=== PATIENT | female | born 1985 | race Caucasian/White ===

== ENCOUNTER 2021-06-27 05:50 | Emergency (ER) | payer OTHER, SELFPAY ==
--- NOTE | ~2021-06-27 | US_ITS ---
EXAMINATION: US ABDOMEN COMPLETE CLINICAL INFORMATION: Upper abdominal pain. Rule out gallbladder problem.. COMPARISON: None TECHNIQUE: Real-time imaging of the abdominal viscera. FINDINGS: PANCREAS: Normal. ABDOMINAL AORTA: The proximal, mid, and distal segments are normal in caliber. INFERIOR VENA CAVA: Visualized portions are normal. LIVER: Normal. The liver is normal in size. The liver contour is normal. Parenchymal echogenicity is increased. No focal hepatic lesion. There is no intrahepatic biliary duct dilatation seen. GALLBLADDER: Normal. The gallbladder is physiologically distended without evidence of stones, sludge, polyps, wall thickening or pericholecystic fluid. COMMON BILE DUCT: Normal in caliber measuring 0.3-0.6 cm in diameter. RIGHT KIDNEY: Normal. No hydronephrosis. No renal calculi or focal parenchymal lesions. The kidney measures 10.6 cm in maximum dimension. LEFT KIDNEY: Normal. No hydronephrosis. No renal calculi or focal parenchymal lesions. The kidney measures 10.3 cm in maximum dimension. SPLEEN: Normal. The spleen measures 9.1 cm in maximum dimension. FREE FLUID: None. US/US abdomen complete IMPRESSION: Hepatic steatosis without focal lesion. Rest of the abdominal ultrasound is unremarkable.
[2021-06-27 06:02] VITALS: BP 130/85; PULSE 82; RESP 16; TEMP 36.8; O2SAT 98; BMI 22.4
[2021-06-27] MEDS: 0.9 % Sodium Chloride 1,000 ML 999 ML IVCONT (06:14)
[2021-06-27 06:20] LABS: MANUAL DIFF FLAG NO
[2021-06-27 06:22] LABS: Basophils Percent Auto 0.5 % (0-2); Eosinophils Absolute Auto 0.2 X10*3/uL (0.0-0.4); Eosinophils Percent Auto 3.7 % (0-4); Hematocrit 40.9 % (37-47); Imm Gran Abs Auto 0.04 X10*3/uL (0.00-0.03); Imm Gran Pct Auto 0.6 % (0.0-0.4); Lymphocytes Absolute Auto 1.4 X10*3/uL (1.2-4.9); Lymphocytes Percent Auto 20.8 % (20-40); Mean Corpuscular HGB Conc 31.8 g/dl (31.0-35.0); Mean Corpuscular Hemoglobin 25.7 pg (27.0-33.0); Mean Platelet Volume 10.4 fL (9.4-12.3); Monocytes Absolute Auto 0.6 X10*3/uL (0.1-1.2); Monocytes Percent Auto 8.9 % (2-11); Neutrophils Absolute Auto 4.3 X10*3/uL (2.0-8.3); Neutrophils Percent Auto 65.5 % (45-73); Platelet Count 238 X10*3/uL (160-400); Red Blood Count 5.05 X10*6/uL (4.20-5.50); Red Cell Distribution Width 13.9 % (11.0-16.0); White Blood Count 6.5 X10*3/uL (4.8-10.8)
[2021-06-27 06:38] LABS: Alanine Aminotransferase 352 U/L (0-31); Albumin Level 3.9 g/dL (3.5-5.0); Alkaline Phosphatase 603 U/L (39-117); Anion Gap 12 (12-20); Aspartate Amino Transferase 136 U/L (5-31); Bilirubin Direct 0.6 mg/dL (0.0-0.5); Bilirubin Total 1.4 mg/dL (0.0-1.0); Blood Urea Nitrogen 7 mg/dL (9-16); Calcium 9.1 mg/dL (8.4-10.2); Carbon Dioxide 24 mmol/L (22-29); Chloride 107 mmol/L (96-108); Creatinine Clr Calc Pharmacy 84.7; Estimated Glomerular Filt Rate > 60; Glucose Random 125 mg/dL (60-115); Lipase 239 U/L (8-78); Potassium 3.4 mmol/L (3.3-5.1); Sodium 140 mmol/L (135-145); Total Protein 7.4 g/dL (6.5-8.0)
--- NOTE | 2021-06-27 07:04 | ED.ABDPAIN ---
HPI - Abdominal Pain General Chief Complaint: Abdominal Pain Stated Complaint: abd pain Time Seen by Provider: 06/27/21 06:01 Source: patient and family Mode of arrival: ambulatory Limitations: no limitations History of Present Illness HPI narrative: 36-year-old female came in for evaluation of upper abdominal pain for 1 week. Patient's symptoms started a week ago has an constant but fluctuating upper abdominal dull aching pain, pain described as moderate 5/10, with no radiation, slightly worsening with food but nothing relieves the pain, no other associated symptoms of fever or chills or anorexia or nausea or vomiting. Never had previous similar symptoms in the past. Related Data Allergies Allergy/AdvReac Type Severity Reaction Status Date / Time No Known Allergies Allergy Verified 06/27/21 06:01 Review of Systems Review of Systems All other systems are reviewed and are negative Constitutional: Reports as per HPI and Reports no additional constitutional complaints Eyes: Reports as per HPI and Reports no additional eye complaints Reports system reviewed and no additional complaints, except as documented Cardiovascular: Reports as per HPI and Reports no additional cardiovascular complaints Respiratory: Reports as per HPI and Reports no additional respiratory complaints Gastrointestinal: Reports as per HPI and Reports no additional gastrointestinal complaints Genitourinary: Reports no additional female genitourinary complaints Musculoskeletal: Reports no additional musculoskeletal complaints Skin/Breast: Reports system reviewed and no additional complaints, except as docu Psychiatric: Reports no additional psychiatric complaints Endocrine: Reports no additional endocrine complaints Hematologic/Lymphatic: Reports no additional hematologic/lymphatic complaints Allergic/Immunologic: Reports no additional allergic/immunologic complaints Reports system reviewed and no additional complaints, except as documented and Reports Abnormal speech present Physical Exam Vital Signs: Vital Signs: Last Vital Signs Temp 98.4 F 06/27/21 07:24 Pulse 86 06/27/21 09:36 Resp 18 06/27/21 09:36 BP 114/69 06/27/21 09:36 Pulse Ox 98 06/27/21 09:36 Body Mass Index 22.4 Vital signs have been reviewed as appeared to be correct. Blood pressure normal. Heart rate normal. Respiration rate normal. Temperature normal. Oxygen saturation normal. Appearance: Alert. Oriented X3. No acute distress. Head: Normal external exam. Normocephalic. Atraumatic. No Evans signs noted. No raccoon eyes noted Eyes: PERRLA. EOMI. Conjunctiva and sclera normal. Eyelids normal. ENT: TM's Normal. Pharynx normal. Uvula midline. Moist mucous membranes. No trismus noted. No drooling noted. No muffled voice noted. Neck: Normal inspection. Neck supple. FROM. No adenopathy. Thyroid Normal. No meningeal signs. No neck mass noted. CVS: Normal heart rate and rhythm. Heart sound normal. No murmurs noted. Pulses normal throughout. Respiratory: No respiratory distress. Painless inspiration. Breath sounds normal. No wheezes/rales/rhonchi noted. Chest nontender. No accessory muscle usage noted or decreased air movement noted. Abdomen: Soft, mild upper abdominal tenderness, no guarding, no rebound tenderness. Bowel sounds normal in all 4 quadrants. No distention noted. No organomegaly noted. No visible injury noted. Back: No CVA tenderness. Full range of motion noted. Skin: Skin warm and dry. Normal skin color. Normal skin turgor. No rashes/lesions/lacerations noted. Extremities: No lower extremity edema. Extremities exhibit normal range of motion. Extremities nontender. Neuro: Oriented X 3. Cranial nerve exam: II-XII are grossly intact No motor deficit. No sensory deficit. Reflexes normal. Course Course Course Narrative: Assessment and plan. 36-year-old female otherwise healthy came in with upper abdominal pain for the past week found to have an acute hepatitis and acute pancreatitis, ultrasound is unremarkable except for hepatic steatosis without focal lesion. As discussed with the patient has no fever no jaundice down appears stable to avoid eating greasy food, Tylenol, alcohol, and take clear diet low or no fat. And follow-up with principal technical writer. Patient is breast-feeding a home do not Wanna be hospitalized will contact Dr. Mathur from GI as an outpatient. MDM - Abdominal Pain Lab Data Attestation: I reviewed the patient's lab results. Result diagrams: 06/27/21 06:12 06/27/21 06:12 Labs: Lab Results 06/27/21 06/27/21 06/27/21 Range/Units 06:12 06:12 07:52 WBC 6.5 (4.8-10.8) X10*3/uL RBC 5.05 (4.20-5.50) X10*6/uL Hgb 13.0 (12.0-16.0) g/dl Hct 40.9 (37-47) % MCV 81.0 (80-98) fL MCH 25.7 L (27.0-33.0) pg MCHC 31.8 (31.0-35.0) g/dl RDW 13.9 (11.0-16.0) % Plt Count 238 (160-400) X10*3/uL MPV 10.4 (9.4-12.3) fL Immature Gran % (Auto) 0.6 H (0.0-0.4) % Neut % (Auto) 65.5 (45-73) % Lymph % (Auto) 20.8 (20-40) % Barnes % (Auto) 8.9 (2-11) % Eos % (Auto) 3.7 (0-4) % Baso % (Auto) 0.5 (0-2) % Lymph # (Auto) 1.4 (1.2-4.9) X10*3/uL Barnes # (Auto) 0.6 (0.1-1.2) X10*3/uL Eos # (Auto) 0.2 (0.0-0.4) X10*3/uL Baso # (Auto) 0.0 (0.0-0.2) X10*3/uL Abs Immat Gran (auto) 0.04 H (0.00-0.03) X10*3/uL Absolute Neuts (auto) 4.3 (2.0-8.3) X10*3/uL Absolute Nucleated RBC 0.000 (0.0-0.012) X10*3/uL Nucleated RBC % (auto) 0.0 (0.0-0.2) /100WBC Sodium 140 (135-145) mmol/L Potassium 3.4 (3.3-5.1) mmol/L Chloride 107 (96-108) mmol/L Carbon Dioxide 24 (22-29) mmol/L Anion Gap 12 (12-20) BUN 7 L (9-16) mg/dL Creatinine 0.81 (0.5-1.4) mg/dL Estim Creat Clear Calc 84.7 Estimated GFR > 60 Random Glucose 125 H (60-115) mg/dL Calcium 9.1 (8.4-10.2) mg/dL Magnesium 2.0 (1.6-2.6) mg/dL Total Bilirubin 1.4 H (0.0-1.0) mg/dL Direct Bilirubin 0.6 H (0.0-0.5) mg/dL AST 136 H (5-31) U/L ALT 352 H (0-31) U/L Alkaline Phosphatase 603 H (39-117) U/L Total Protein 7.4 (6.5-8.0) g/dL Albumin 3.9 (3.5-5.0) g/dL Lipase 239 H (8-78) U/L Urine Color YELLOW Urine Appearance CLEAR Urine pH 6.0 (5.0-8.0) Ur Specific [place] <= 1.005 (1.005-1.025) Urine Protein NEG (NEG-TRACE) MG/DL Urine Glucose (UA) NEG (NEG) MG/DL Urine Ketones NEG (NEG) MG/DL Urine Blood NEG (NEG) Urine Nitrite NEG (NEG) Ur Leukocyte Esterase NEG (NEG) Urine Test (NEGATIVE) 06/27/21 Range/Units 07:52 WBC (4.8-10.8) X10*3/uL RBC (4.20-5.50) X10*6/uL Hgb (12.0-16.0) g/dl Hct (37-47) % MCV (80-98) fL MCH (27.0-33.0) pg MCHC (31.0-35.0) g/dl RDW (11.0-16.0) % Plt Count (160-400) X10*3/uL MPV (9.4-12.3) fL Immature Gran % (Auto) (0.0-0.4) % Neut % (Auto) (45-73) % Lymph % (Auto) (20-40) % Barnes % (Auto) (2-11) % Eos % (Auto) (0-4) % Baso % (Auto) (0-2) % Lymph # (Auto) (1.2-4.9) X10*3/uL Barnes # (Auto) (0.1-1.2) X10*3/uL Eos # (Auto) (0.0-0.4) X10*3/uL Baso # (Auto) (0.0-0.2) X10*3/uL Abs Immat Gran (auto) (0.00-0.03) X10*3/uL Absolute Neuts (auto) (2.0-8.3) X10*3/uL Absolute Nucleated RBC (0.0-0.012) X10*3/uL Nucleated RBC % (auto) (0.0-0.2) /100WBC Sodium (135-145) mmol/L Potassium (3.3-5.1) mmol/L Chloride (96-108) mmol/L Carbon Dioxide (22-29) mmol/L Anion Gap (12-20) BUN (9-16) mg/dL Creatinine (0.5-1.4) mg/dL Estim Creat Clear Calc Estimated GFR Random Glucose (60-115) mg/dL Calcium (8.4-10.2) mg/dL Magnesium (1.6-2.6) mg/dL Total Bilirubin (0.0-1.0) mg/dL Direct Bilirubin (0.0-0.5) mg/dL AST (5-31) U/L ALT (0-31) U/L Alkaline Phosphatase (39-117) U/L Total Protein (6.5-8.0) g/dL Albumin (3.5-5.0) g/dL Lipase (8-78) U/L Urine Color Urine Appearance Urine pH (5.0-8.0) Ur Specific [place] (1.005-1.025) Urine Protein (NEG-TRACE) MG/DL Urine Glucose (UA) (NEG) MG/DL Urine Ketones (NEG) MG/DL Urine Blood (NEG) Urine Nitrite (NEG) Ur Leukocyte Esterase (NEG) Urine Test NEGATIVE (NEGATIVE) Imaging Data Abdominal ultrasound: Radiologist's impression: Hepatic steatosis without focal lesion. Discharge Plan Discharge Clinical Impression: Pancreatitis, Hepatitis Patient Disposition: Home, Self-Care Instructions: Pancreatitis (ED) Additional Instructions: Return to the emergency department or seek immediate medical attention for fever, chills, year on eyes/skin color turned to yellow. Follow-up with principal technical writer as instructed. Avoid taking Tylenol/greasy foods/alcohol drinking. Referrals: Gely Mccoy MD [Physician] - 2 days [facility] Past Medical History Source: old records reviewed Social History Social History Advance Directives: No Advance Directives Information Provided: Yes Patient : No
[2021-06-27 07:24] VITALS: BP 109/63; PULSE 72; RESP 16; TEMP 36.9; O2SAT 100
[2021-06-27 07:58] LABS: Appearance Urine CLEAR; Color Urine YELLOW; Glucose Urine UA NEG (NEG); Leukocyte Esterase Urine NEG (NEG); Nitrite Urine NEG (NEG); Specific Gravity - Urine <= 1.005 (1.005-1.025); Urine Blood NEG (NEG); Urine Ketones NEG (NEG); Urine Protein NEG (NEG-TRACE)
[2021-06-27 08:00] LABS: UPreg QC Valid YES; Urine Pregnancy NEGATIVE (NEGATIVE)
--- NOTE | 2021-06-27 08:43 | PC.NURSE ---
BEDSIDE ULTRASOUND IS BEING DONE
[2021-06-27 09:36] VITALS: BP 114/69; PULSE 86; RESP 18; O2SAT 98
== END 2021-06-27 09:58 | disposition home or self-care (01) ==
PROVIDERS: Emergency Medicine; Emergency Provider Emergency Medicine
DX: K85.90 Acute pancreatitis without necrosis or infection, unspecified (principal); R10.10 Upper abdominal pain, unspecified; K75.9 Inflammatory liver disease, unspecified; Z79.899 Other long term (current) drug therapy
CPT/HCPCS: 36415; 76700; 80048; 80076; 81003; 81025; 83690; 83735; 85025; 96360; 99284

== ENCOUNTER 2021-07-31 10:49 | Outpatient (REF) | payer OTHER, SELFPAY ==
[2021-07-31 13:31] LABS: Hematocrit 42.4 % (37-47); Hemoglobin 13.5 g/dl (12.0-16.0); Mean Corpuscular HGB Conc 31.8 g/dl (31.0-35.0); Mean Corpuscular Volume 81.5 fL (80-98); Mean Platelet Volume 11.8 fL (9.4-12.3); Platelet Count 164 X10*3/uL (160-400); Red Cell Distribution Width 13.3 % (11.0-16.0); White Blood Count 5.8 X10*3/uL (4.8-10.8)
[2021-07-31 13:45] LABS: INTERNATIONAL NORM RATIO 1.1 (0.9-1.1); Prothrombin Time 12.1 SEC (9.9-13.0)
[2021-07-31 14:12] LABS: Alanine Aminotransferase 94 U/L (0-31); Albumin Level 4.6 g/dL (3.5-5.0); Alkaline Phosphatase 470 U/L (39-117); Anion Gap 13 (12-20); Aspartate Amino Transferase 71 U/L (5-31); Bilirubin Total 0.6 mg/dL (0.0-1.0); Blood Urea Nitrogen 10 mg/dL (9-16); C Reactive Protein 0.06 mg/dL (< or = 0.50); Calcium 9.5 mg/dL (8.4-10.2); Carbon Dioxide 25 mmol/L (22-29); Chloride 105 mmol/L (96-108); Estimated Glomerular Filt Rate > 60; Glucose Random 71 mg/dL (60-115); Iron 75 mcg/dL (30-160); Percent Iron Saturation 18 % (15-50); Potassium 4.2 mmol/L (3.3-5.1); Sodium 139 mmol/L (135-145); Total Iron Binding Capacity 409 mcg/dL (228-428); Total Protein 8.2 g/dL (6.5-8.0); Unsaturated Iron Binding 334 ug/dL
[2021-07-31 14:23] LABS: Ferritin 19 ng/mL (10-122); TSH reflex Free T4 0.75 uIU/mL (0.32-4.0)
[2021-07-31 14:26] LABS: Monotest Negative (Negative)
[2021-07-31 14:35] LABS: Erythrocyte Sedimentation Rate 8 MM/HR (0-20); Gamma Glutamyl Transpeptidase 1278 U/L (7-33)
[2021-07-31 14:41] LABS: Folate 17.3 ng/mL (> or = 4.0); Vitamin B12 596 pg/mL (200-900)
[2021-08-01 08:02] LABS: HBS Num1 > 1000.00 mIU/mL (0-7.99); HBc Num1 10.44 S/CO (0.00-0.79); HBsAGNum1 0.28 S/CO (0.00-0.99); Hepatitis A Antibody IgM 0.18 Index (0-0.79); Hepatitis B Surface Antigen Negative (Negative); ~HepC Num1 0.09 S/CO (0.00-0.79); ~Hepatitis A Antibody IgM Nonreactive (Nonreactive); ~Hepatitis B Surface Antibody REACTIVE (Nonreactive); ~Hepatitis C Antibody Nonreactive (Nonreactive)
[2021-08-01 08:32] LABS: Lyme Abs Screen <0.90 index
[2021-08-01 09:51] LABS: HBc Num2 10.87 S/CO; HBc Num3 11.04 S/CO; Hepatitis B Core Antibody Reactive (Nonreactive)
[2021-08-01 18:07] LABS: Alpha 1 Anti-trypsin 149 mg/dL (83-199); Ceruloplasmin 30 mg/dL (18-53)
[2021-08-03 07:51] LABS: Aldolase 6.6 U/L (<=8.1)
[2021-08-03 23:27] LABS: ANA Titer 2 1:40 titer; Anti Nuclear Antibody Pattern Mitotic, Centrosome; Anti Nuclear Antibody Screen POSITIVE (NEGATIVE); Anti Nuclear Antibody Titer 1:40 titer
[2021-08-04 13:30] LABS: Transglutaminase Ab IgG <1.0 U/mL; Transglutaminase IgA <1.0 U/mL
[2021-08-04 13:37] LABS: Gliadin Deamidated IgA Ab <1.0 U/mL; Gliadin Deamidated IgG Ab <1.0 U/mL
[2021-08-05 13:32] LABS: Soluble Liver Ag Autoantibody <20.1 U (0.0-20.0)
[2021-08-07 09:02] LABS: A. Phagocytophilum Ab IgG <1:64 (<1:64); A. Phagocytophilum Ab IgM <1:20 (<1:20); E. Chaffeensis Ab IgG <1:64 (<1:64); E. Chaffeensis Ab IgM <1:20 (<1:20)
[2021-08-07 13:06] LABS: Babesia IgG <1:64 titer (<1:64); Babesia IgM <1:20 titer (<1:20)
[2021-08-08 20:36] LABS: Immunoglobulin G Subclass 1 676 mg/dL (382-929); Immunoglobulin G Subclass 2 545 mg/dL (241-700); Immunoglobulin G Subclass 3 64 mg/dL (22-178); Immunoglobulin G Subclass 4 45.8 mg/dL (4-86); Immunoglobulin G Total 1489 mg/dL (600-1640)
[2021-08-09 12:17] LABS: Mitochondrial Antibodies NEGATIVE (NEGATIVE)
== END 2021-07-31 10:50 | disposition home or self-care (01) ==
LOC: HO.LAB 10:49
PROVIDERS: PCP Physician Assistant Medical; Visit Provider Internal Medicine Gastroenterology
DX: K85.90 Acute pancreatitis without necrosis or infection, unspecified (principal); R94.5 Abnormal results of liver function studies; G89.29 Other chronic pain; R10.33 Periumbilical pain; K52.839 Microscopic colitis, unspecified; R79.82 Elevated C-reactive protein (CRP)
CPT/HCPCS: 36415; 80053; 82085; 82103; 82390; 82607; 82728; 82746; 82784; 82977; 83516; 83520; 83540; 84443; 85027; 85610; 85652; 86038; 86039; 86140; 86255; 86256; 86308; 86617; 86618; 86666; 86704; 86706; 86709; 86753; 86803; 87340

== ENCOUNTER 2021-08-10 07:52 | Outpatient (REF) | payer OTHER, SELFPAY ==
[2021-08-10 08:27] LABS: INTERNATIONAL NORM RATIO 1.1 (0.9-1.1); Prothrombin Time 12.2 SEC (9.9-13.0)
== END 2021-08-10 07:53 | disposition home or self-care (01) ==
LOC: HO.LAB 07:52
PROVIDERS: PCP Physician Assistant Medical; Visit Provider Internal Medicine Gastroenterology
DX: R94.5 Abnormal results of liver function studies (principal)
CPT/HCPCS: 36415; 85610

== ENCOUNTER → 2021-08-23 07:44 | Outpatient (REF) | payer OTHER, SELFPAY ==
--- NOTE | ~2021-08-23 | NM_ITS ---
EXAMINATION: NM BILIARY TRACT IMAGING CLINICAL INFORMATION: Abnormal results liver function studies. COMPARISON: Abdominal ultrasound 06/27/2021. TECHNIQUE: Serial gamma scintillation camera images were obtained over the abdomen for a total observation period of 60 minutes following the intravenous administration of 5.0 mCi Tc-99m Mebrofenin. FINDINGS: There is good concentration of activity in the liver by 5 minutes post injection. Biliary activity is visualized by 10 minutes. The gallbladder is well visualized by 30 minutes. Small bowel is well visualized by 30 minutes. At the end of the study there is good clearance of activity from the liver and visualization of diffuse small bowel activity. NM/NM hepatobiliary wo pharm IMPRESSION: 1. Visualization of the gallbladder is evidence of a patent cystic duct and strong evidence against the diagnosis of acute cholecystitis. 2. The common bile duct is patent. 3. Liver function appears normal.
[2021-08-23 09:00] LABS: Alanine Aminotransferase 68 U/L (0-31); Albumin Level 4.4 g/dL (3.5-5.0); Alkaline Phosphatase 300 U/L (39-117); Anion Gap 11 (12-20); Aspartate Amino Transferase 37 U/L (5-31); Bilirubin Total 0.8 mg/dL (0.0-1.0); Blood Urea Nitrogen 12 mg/dL (9-16); Calcium 9.6 mg/dL (8.4-10.2); Carbon Dioxide 29 mmol/L (22-29); Chloride 106 mmol/L (96-108); Estimated Glomerular Filt Rate > 60; Glucose Random 81 mg/dL (60-115); Potassium 5.3 mmol/L (3.3-5.1); Sodium 141 mmol/L (135-145); Total Protein 7.4 g/dL (6.5-8.0)
== END ==
LOC: HO.NUCMED 07:44
PROVIDERS: PCP Physician Assistant Medical; Visit Provider Internal Medicine Gastroenterology
DX: K75.81 Nonalcoholic steatohepatitis (NASH) (principal); R94.5 Abnormal results of liver function studies; K85.90 Acute pancreatitis without necrosis or infection, unspecified
CPT/HCPCS: 36415; 78226; 80053; A9537

== ENCOUNTER 2021-11-05 07:07 | Day surgery (SDC) | payer OTHER, SELFPAY ==
--- NOTE | ~2021-11-05 | US_ITS ---
EXAMINATION: ULTRASOUND-GUIDED CORE LIVER BIOPSY CLINICAL INFORMATION: Elevated liver function test. History of pancreatitis. COMPARISON: Ultrasound abdomen complete 06/27/2021 TECHNIQUE: Following explaining ultrasound guided liver core biopsy procedure, benefits and risk, a written consent was obtained. Patient was placed supine on ultrasound stretcher and preliminary ultrasound imaging was obtained. An optimal site was selected along the right lateral abdomen into costly. The areas marked, cleaned and draped in usual sterile manner. 1% lidocaine was injected at puncture site. Through a small skin incision a 20-gauge guide needle was advanced under sterile ultrasound guidance the right hepatic lobe. Coaxially a 20-gauge biopsy gun was advanced and a 3 pass core biopsy was obtained. Post biopsy the stylet was reintroduced and the guide needle was removed. Complete hemostasis achieved at puncture site. Patient to our procedure extremely well. Conscious sedation Versed and fentanyl was administered and patient monitored for FINDINGS: On preliminary ultrasound imaging there is diffuse the liver echotexture is normal. No focal lesion seen. There is no intrahepatic ductal dilatation. Successful ultrasound-guided liver core biopsy was performed coaxially without immediate complications. US/US biopsy liver IMPRESSION: Successful ultrasound-guided liver core biopsy performed.
[2021-11-05 07:25] VITALS: BMI 21.4
[2021-11-05 08:46] LABS: MANUAL DIFF FLAG NO
[2021-11-05 08:50] LABS: Basophils Absolute Auto 0.1 X10*3/uL (0.0-0.2); Basophils Percent Auto 1.1 % (0-2); Eosinophils Absolute Auto 0.2 X10*3/uL (0.0-0.4); Eosinophils Percent Auto 2.8 % (0-4); Hemoglobin 13.6 g/dl (12.0-16.0); Imm Gran Abs Auto 0.02 X10*3/uL (0.00-0.03); Imm Gran Pct Auto 0.4 % (0.0-0.4); Lymphocytes Absolute Auto 1.6 X10*3/uL (1.2-4.9); Lymphocytes Percent Auto 29.2 % (20-40); Mean Corpuscular HGB Conc 31.6 g/dl (31.0-35.0); Mean Corpuscular Hemoglobin 26.3 pg (27.0-33.0); Mean Corpuscular Volume 83.2 fL (80.0-98.0); Mean Platelet Volume 11.3 fL (9.4-12.3); Monocytes Absolute Auto 0.4 X10*3/uL (0.1-1.2); Monocytes Percent Auto 6.8 % (2-11); Neutrophils Absolute Auto 3.2 x10*3/uL (2.0-8.3); Neutrophils Percent Auto 59.7 % (45-73); Platelet Count 194 X10*3/uL (160-400); Red Blood Count 5.17 X10*6/uL (4.20-5.50); Red Cell Distribution Width 13.3 % (11.0-16.0); White Blood Count 5.4 X10*3/uL (4.8-10.8)
[2021-11-05 08:58] LABS: INTERNATIONAL NORM RATIO 1.1 (0.9-1.1)
[2021-11-05 09:00] LABS: Partial Thromboplastin Time 35.7 SEC (24.1-38.0)
[2021-11-05] MEDS: Lidocaine HCl 1 % 20 ML VIAL 4 ML SUBCUT (09:47)
[2021-11-05 09:50] VITALS: BP 106/59; PULSE 64; RESP 14; TEMP 37.1; O2SAT 100
[2021-11-05 10:05] VITALS: BP 101/59; PULSE 78; RESP 16; O2SAT 100
[2021-11-05 10:20] VITALS: BP 108/77; PULSE 75; RESP 18; O2SAT 100
[2021-11-05 10:35] VITALS: BP 103/74; PULSE 71; RESP 18; O2SAT 100
[2021-11-05 10:50] VITALS: BP 97/55; PULSE 67; RESP 18; O2SAT 100
[2021-11-05 11:20] VITALS: BP 98/52; PULSE 71; RESP 18; TEMP 36.7; O2SAT 99
== END 2021-11-05 11:50 | disposition home or self-care (01) ==
PROVIDERS: Radiology Diagnostic Radiology; PCP Physician Assistant Medical; Visit Provider Internal Medicine Gastroenterology
DX: R74.01 Elevation of levels of liver transaminase levels (principal); Z87.19 Personal history of other diseases of the digestive system
CPT/HCPCS: 36415; 47000; 76942; 85025; 85610; 85730; 88307; 88313; 88341; 88342; 99152; J2250; J3010

== ENCOUNTER 2021-11-12 07:30 | Day surgery (SDC) | payer OTHER, SELFPAY ==
[2021-11-06 15:07] VITALS: BMI 21.7
--- NOTE | 2021-11-09 10:25 | HO.ANESPROP2 ---
Documented by User: Dalila Florence NP 11/09/21 10:26 HPI - Anesthesia Eval Consult details Narrative: 36yo F for Upper Endoscopy [facility] Active Problems Active Problems: All Active Problems (Updated 11/06/21 @ 15:06 by Dayana Johnson RN) Abnormal LFTs (Acute) Pancreatitis (Acute) Past Medical History Medical History (Updated 11/06/21 @ 15:06 by Dayana Johnson RN) Pancreatitis Varicose vein of leg Family History Family History Mother Colon polyps FHx: kidney cancer Stroke HTN (hypertension) Maternal Grandmother HTN (hypertension) Stroke Surgical History Surgical History (Updated 11/12/21 @ 08:05 by Erika Saldaña MD) History of dental surgery History of liver biopsy Hx of colonoscopy Hx of varicose vein ligation Social History Social History Patient Tobacco Use Status: Never used Tobacco Use of substances other than those prescribed or required for medical reasons: No Are you DNR?: No Advance Directives: No Advance Directives Information Provided: Yes Meds Allergies Allergy/AdvReac Type Severity Reaction Status Date / Time No Known Allergies Allergy Verified 07/31/21 11:04 Home Medications Medication Instructions Recorded Confirmed Last Taken Type docosahexaenoic acid 200 mg mg PO 07/31/21 Unknown History capsule ( DHA) Exam Exam Date and Time: November 09, 2021 1025 Height,Weight and Vital Signs: Height 5 ft 7 in Weight 63.049 kg Assessment and Plan Assessment Anesthesia Assessment: Chart Reviewed Documented by User: Erika Saldaña MD 11/12/21 08:43 [facility] Past Medical History Medical History (Updated 11/06/21 @ 15:06 by Dayana Johnson RN) Pancreatitis Varicose vein of leg Family History Family History Mother Colon polyps FHx: kidney cancer Stroke HTN (hypertension) Maternal Grandmother HTN (hypertension) Stroke Family history of problems with anesthesia: No Surgical History Surgical History (Updated 11/12/21 @ 08:05 by Erika Saldaña MD) History of dental surgery History of liver biopsy Hx of colonoscopy Hx of varicose vein ligation History of Problems with Anesthesia: No Social History Social History Patient Tobacco Use Status: Never used Tobacco Use of substances other than those prescribed or required for medical reasons: No Are you DNR?: No Advance Directives: No Advance Directives Information Provided: Yes Meds Allergies Allergy/AdvReac Type Severity Reaction Status Date / Time No Known Allergies Allergy Verified 07/31/21 11:04 Home Medications Medication Instructions Recorded Confirmed Last Taken Type docosahexaenoic acid 200 mg mg PO 07/31/21 Unknown History capsule ( DHA) Exam Height,Weight and Vital Signs: Height 5 ft 7 in Weight 63.049 kg Vital Signs Temp Pulse Resp BP Pulse Ox 11/12/21 07:53 97.4 F 81 16 107/66 99 Pertinent Lab Results Pertinent Lab Results: Lab Results 11/12/21 Range/Units 07:45 Urine Test NEGATIVE (NEGATIVE) Airway Mallampati Class: I TM Dist: >3cm Neck ROM: Full Loose/Missing/Broken Teeth: No Heart: RRR Lungs: CTAB Assessment and Plan Assessment Anesthesia Assessment: Anesthesia Plan Discussed Final Anesthetic Review Family History of Problems with Anesthesia: No History of Problems with Anesthesia: No NPO: Yes ASA Class: II Final Preanesthetic Review: No Changes in Pt Med Stat, Meds/Allgs Chart Reviewed, Consent Obtained/Reviewed and Anes Risks/Benef Reviewed Patient Risk: Low Procedure Risk: Low Assessment/Block/Sedation in SS: Assess/Block/Sedation-SS Anesthetic Plan Anesthetic Plan: MAC: Disposition: Standard PACU
--- NOTE | 2021-11-12 06:42 | MHC.SHP ---
Pre-Procedural Eval Section A Date of Service: 11/12/21 Section B Chief Complaint: Upper Abdominal Pain Relevant Family History (Specify if Yes): No Relevant Social History: None Present Medications: see Short Stay Collaborative assessment Medical History: Significant History (Pancreatitis Varicose vein of leg) History of Previous Operations: Relevant previous surgery/procedure and date(s) (History of liver biopsy Hx of colonoscopy Hx of varicose vein ligation) Allergies: Allergies Allergy/AdvReac Type Severity Reaction Status Date / Time No Known Allergies Allergy Verified 07/31/21 11:04 Review of Systems Sugical H&P ROS: Negative: Constitution, Cardiovascular, Respiratory, Neurological, Psychiatric, Hem-Onc, Allergic/Immunologic, Gastrointestinal, Genitourinary, Musculoskeletal, Integumentary, Endocrine and Eyes/Ears/Nose/Throat Exam Surgical H&P Exam: Normal: HEENT, Normal: Heart, Normal: Lungs, Normal: Extremities, Normal: Abdomen, Normal: Skin and Normal: Neurological Plan Diagnosis/Plan: Unchanged I have reviewed the history and physical and performed a pertinent physical examination on my patient. No changes have occurred unless specified.
[2021-11-12 07:53] VITALS: BP 107/66; PULSE 81; RESP 16; TEMP 36.3; O2SAT 99
[2021-11-12 07:57] LABS: UPreg QC Valid YES; Urine Pregnancy NEGATIVE (NEGATIVE)
[2021-11-12] MEDS: Lactated Ringers 1,000 ML 100 ML IVCONT (08:33)
--- NOTE | 2021-11-12 08:37 | P.BOP_ITS ---
Brief Operative Note Date of Service: 11/12/21 Pre-op diagnosis: abdominal pain Post-op diagnosis: same Procedure: see op note Surgeon: Gely Mccoy MD Anesthesia: MAC Was an Award Machine Operator used for this Procedure?: No Estimated blood loss (mL): 0 Condition: stable Disposition: PACU
--- NOTE | 2021-11-12 08:37 | W.PM.OPN ---
Operative Note Operative Note Date of Service: 11/12/21 Narrative: Procedure Description: EGD FLEXIBLE TRANSORAL UPPER GASTROINTESTINAL ENDOSCOPY UPPER ENDOSCOPY Consent: Indications for the procedure and potential complications of bleeding, perforation, reaction to medications and missed diagnosis were discussed with the patient and informed consent was obtained. Instrument: Olympus GIF H 190 J mid size upper endoscope Monitoring: Vital signs and clinical assessment, continuous EKG monitoring, Pulse oximetry, Carbon Dioxide monitoring and blood pressure monitoring were done throughout the procedure. Procedure: The patient was placed in the left lateral decubitis position and pre-procedure medications were administered and a bite block was placed. The endoscope was inserted into the mouth and advanced under direct vision to the third part of duodenum. A careful inspection was made as the upper endoscope was withdrawn including a retroflexed examination of the proximal stomach; Findings and interventions are described below. Findings: Larynx:normal Esophagus: GE junction at 40 cm, diaphragm hiatus at 40 cm, mild erythema and edema at GEJ, bx taken Stomach: normal mucosa. Biopsies were obtained. Grade 2 flap valve on retroflexed examination of the cardia. Duodenum: Normal bulb and descending duodenum, bx taken, ampulla carol and looked normal Intervention: Biopsies as noted above Impression/Findings: esophagitis PLAN: await bx recheck labs today
[2021-11-12 08:50] VITALS: BP 100/56; PULSE 79; RESP 19; TEMP 36.1; O2SAT 99
[2021-11-12 09:05] VITALS: BP 110/58; PULSE 70; RESP 18; TEMP 36.1; O2SAT 98
[2021-11-12 09:08] LABS: MANUAL DIFF FLAG NO
[2021-11-12 09:16] LABS: Basophils Absolute Auto 0.1 X10*3/uL (0.0-0.2); Eosinophils Absolute Auto 0.2 X10*3/uL (0.0-0.4); Hematocrit 36.8 % (37.0-47.0); Hemoglobin 11.9 g/dl (12.0-16.0); Imm Gran Abs Auto 0.02 X10*3/uL (0.00-0.03); Imm Gran Pct Auto 0.4 % (0.0-0.4); Lymphocytes Absolute Auto 1.3 X10*3/uL (1.2-4.9); Lymphocytes Percent Auto 26.4 % (20-40); Mean Corpuscular HGB Conc 32.3 g/dl (31.0-35.0); Mean Corpuscular Hemoglobin 27.2 pg (27.0-33.0); Mean Corpuscular Volume 84.2 fL (80.0-98.0); Mean Platelet Volume 9.9 fL (9.4-12.3); Monocytes Absolute Auto 0.3 X10*3/uL (0.1-1.2); Monocytes Percent Auto 5.8 % (2-11); Neutrophils Absolute Auto 3.2 x10*3/uL (2.0-8.3); Neutrophils Percent Auto 63.4 % (45-73); Platelet Count 134 X10*3/uL (160-400); Red Blood Count 4.37 X10*6/uL (4.20-5.50); Red Cell Distribution Width 13.5 % (11.0-16.0)
--- NOTE | 2021-11-12 09:17 | PC.NURSE ---
dr bolaños at bedside going over results at 0900
[2021-11-12 09:39] LABS: Anion Gap 8 (12-20); Blood Urea Nitrogen 13 mg/dL (9-16); Calcium 8.5 mg/dL (8.4-10.2); Carbon Dioxide 25 mmol/L (22-29); Chloride 111 mmol/L (96-108); Creatinine Clr Calc Pharmacy 114.1; Estimated Glomerular Filt Rate > 60; Glucose Random 81 mg/dL (60-115); Potassium 4.2 mmol/L (3.3-5.1); Sodium 140 mmol/L (135-145)
[2021-11-13 09:21] LABS: Alanine Aminotransferase 22 U/L (0-31); Albumin Level 3.5 g/dL (3.5-5.0); Alkaline Phosphatase 78 U/L (39-117); Aspartate Amino Transferase 18 U/L (5-31); Bilirubin Direct 0.2 mg/dL (0.0-0.5); Bilirubin Total 0.5 mg/dL (0.0-1.0); Total Protein 6.1 g/dL (6.5-8.0)
[2021-11-16 12:37] LABS: Aldolase 3.1 U/L (<=8.1)
== END 2021-11-12 09:53 | disposition home or self-care (01) ==
PROVIDERS: Nurse Practitioner; PCP Physician Assistant Medical; Visit Provider Internal Medicine Gastroenterology
PROC: 0DJ08ZZ Inspection of Upper Intestinal Tract, Via Natural or Artificial Opening Endoscopic (ICD-10-PCS; CPT 43235; principal; 2021-11-12 08:30)
DX: R10.10 Upper abdominal pain, unspecified (principal); K20.80 Other esophagitis without bleeding; K44.9 Diaphragmatic hernia without obstruction or gangrene; B17.9 Acute viral hepatitis, unspecified; K85.90 Acute pancreatitis without necrosis or infection, unspecified; R94.5 Abnormal results of liver function studies; K59.00 Constipation, unspecified
CPT/HCPCS: 43239; 36415; 80048; 80076; 81025; 82085; 82550; 85025; 88305; 88342

== ENCOUNTER → 2021-12-31 10:23 | Outpatient (BNVA) | payer OTHER, SELFPAY | PROVIDERS: PCP Physician Assistant Medical; Visit Provider Internal Medicine Gastroenterology | DX: Z13.89 Encounter for screening for other disorder (principal) ==

== ENCOUNTER 2023-10-24 09:19 | Outpatient (AMB) | payer OTHER, SELFPAY ==
--- NOTE | 2023-10-24 09:21 | MHC.OFFVIS ---
Intake Vital Signs 10/24/23 09:23 Height 5 ft 7 in Weight 153 lb BMI 24.0 BP 106/56 L Blood Pressure Location Lt brachial Position Sitting Pulse 65 Intake Visit Reasons: follow up abnormal liver function Intake Note: Eneida presents in the office as a follow up for her LFTs. CC: She had a colonoscopy and had a removal of a polyp so she is due for a colonoscopy. No other concerns today. Roller Maker Required: No Allergies No Known Allergies Allergy (Verified 10/24/23 09:23) HPI follow up abnormal liver function HPI Details 38 yr old f here for f/u RECAP: she was having upset stomach upper abdomen, like a band around her belly going into the back for 2 weeks she was having diarrhea appetite was poor seh had no nausea or vomiting no diarrhea no blood in stool she had no fever no jaundice no urine sx or discoloration she went to the ED and had assessment, Us nml with steatosis denies tick bites or sick contacts, no sea food, doesnt eat raw sushi TESTS: Labs: elevated lipase, AST:136? ALT 352,, alk phos, 603-- bili: 1.4, Hep B core Ab pos (prior exposure) PCP ordered MRI 07/06 --mild CBd dilation 8 mm, no acute findings, nml pancreas SMA, Hep serologies were negative US: nml GB, steatosis, MRI 07/06--mild CBD diltation 8 mm, no acute findings, nml pancreas Liver bx: no chronic or acute disease or inflammation INTERIM: doing well good appetite no abdominal pain no nausea, or vomiting she had colonoscopy 2018 and she had a polyp removed and she is requesting a follow up colonoscopy there is FH of colon polyps in mother EXAM: GENERAL: The patient is well developed and nontoxic. VITAL SIGNS:see workflow HEENT: Nonicteric sclerae, PERRLA, EOMI. Oropharynx clear. Moist mucous membranes. Conjunctivae appear well perfused. No thyroid mass. CHEST: Chest wall is nontender. HEART: Regular rate and rhythm without murmurs. LUNGS: Clear to auscultation bilaterally. ABDOMEN: Soft, positive bowel sounds, nontender, no organomegaly.no flank tenderness SKIN: No rash, no excessive bruising, petechiae, or purpura. NEUROLOGIC: Cranial nerves II-XII intact without motor/sensory deficit. a/P: 1/ H xof abn LFT, will recheck 2/ hx fo colon polyp PLAN: 1/ periodic LFT measurement check now 2/ colonoscopy with suprep [facility] Medical History Pancreatitis Varicose vein of leg Surgical History (Updated 10/24/23 @ 09:23 by KEN Green) History of esophagogastroduodenoscopy (EGD) History of dental surgery History of liver biopsy Hx of varicose vein ligation Hx of colonoscopy Family History Mother Colon polyps FHx: kidney cancer Stroke HTN (hypertension) Maternal Grandmother HTN (hypertension) Stroke Social History Patient Tobacco Use Status: Never used Tobacco Physical Exam Vital Signs: Last Vital Signs Pulse 65 10/24/23 09:23 BP 106/56 L 10/24/23 09:23 BMI result Body Mass Index 24.0 Assessment & Plan Assessment & Plan (1) Abnormal LFTs: Code(s): R94.5 - Abnormal results of liver function studies Plan: a/P: 1/ H xof abn LFT, will recheck 2/ hx fo colon polyp PLAN: 1/ periodic LFT measurement check now 2/ colonoscopy with suprep Orders: Orders Comprehensive Met. Panel Today K75.81 - Nonalcoholic steatohepatitis (BROOKS) Medications: New sodium,potassium,mag sulfates 17.5-3.13-1.6 gram (Suprep Bowel Prep Kit) DILUTE; drink 1/2 at 6-8 pm and half at 11 PM- 1AM 354 mL 0RF Coding Level of Care Code Est Pt Level 3 (77814) Diagnoses Abnormal LFTs R94.5
[2023-10-24 09:23] VITALS: BP 106/56; PULSE 65; BMI 24.0
== END 2023-10-24 10:38 | disposition home or self-care (01) ==
PROVIDERS: PCP Physician Assistant Medical; Visit Provider Internal Medicine Gastroenterology
DX: R94.5 Abnormal results of liver function studies (principal)
CPT/HCPCS: 99213

== ENCOUNTER 2023-10-24 09:19 | Outpatient (REF) | payer OTHER, SELFPAY ==
[2023-10-24 12:15] LABS: Alanine Aminotransferase 18 U/L (0-31); Albumin Level 4.3 g/dL (3.5-5.0); Alkaline Phosphatase 61 U/L (39-117); Anion Gap 13 (12-20); Aspartate Amino Transferase 17 U/L (5-31); Bilirubin Total 0.5 mg/dL (0.0-1.0); Blood Urea Nitrogen 9 mg/dL (9-16); Calcium 9.1 mg/dL (8.4-10.2); Carbon Dioxide 24 mmol/L (22-29); Chloride 109 mmol/L (96-108); Estimated Glomerular Filt Rate > 60; Glucose Random 82 mg/dL (60-115); Potassium 4.2 mmol/L (3.3-5.1); Sodium 142 mmol/L (135-145); Total Protein 7.6 g/dL (6.5-8.0)
== END 2023-10-24 09:20 | disposition home or self-care (01) ==
LOC: HO.LAB 09:19
PROVIDERS: PCP Physician Assistant Medical; Visit Provider Internal Medicine Gastroenterology
DX: K75.81 Nonalcoholic steatohepatitis (NASH) (principal)
CPT/HCPCS: 36415; 80053

== ENCOUNTER 2024-07-01 07:32 | Day surgery (SDC) | payer OTHER, SELFPAY ==
[2024-06-29 13:56] VITALS: BMI 24.0
--- NOTE | 2024-06-29 14:42 | P.CONAN_ITS ---
Documented by User: Dalila Florence NP 06/29/24 14:42 HPI - Anesthesia Eval Consult details Narrative: 39yo F for Colonoscopy [facility] Active Problems Active Problems: All Active Problems Abnormal LFTs (Acute) Pancreatitis (Acute) Past Medical History Medical History Pancreatitis Varicose vein of leg Family History Family History Mother Colon polyps FHx: kidney cancer Stroke HTN (hypertension) Maternal Grandmother HTN (hypertension) Stroke Family history of problems with anesthesia: No Surgical History Surgical History (Updated 10/24/23 @ 09:23 by KEN Green) History of esophagogastroduodenoscopy (EGD) History of dental surgery History of liver biopsy Hx of varicose vein ligation Hx of colonoscopy History of Problems with Anesthesia: No Social History Social History Patient Tobacco Use Status: Never used Tobacco Have you been hit, kicked, punched, or otherwise hurt by someone within the past year? If so, by whom?: No Are you DNR?: No Advance Directives: No Advance Directives Information Provided: Yes Nutrition Risks: No Nutritional Risk Patient : No FDLMP: now Meds Allergies Allergy/AdvReac Type Severity Reaction Status Date / Time No Known Allergies Allergy Verified 10/24/23 09:23 Home Medications ?Medication ?Instructions ?Recorded ?Confirmed ?Last Taken ?Type ascorbate calcium (vitamin C) 500 1 g PO Q6H 10/24/23 Unknown History mg tablet Exam Height,Weight and Vital Signs: Height 5 ft 7 in Weight 69.4 kg Assessment and Plan Assessment Anesthesia Assessment: Chart Reviewed Final Anesthetic Review Family History of Problems with Anesthesia: No History of Problems with Anesthesia: No Documented by User: Efren Harper MD 07/01/24 09:23 [facility] Past Medical History Medical History Pancreatitis Varicose vein of leg Patient : No Family History Family History Mother Colon polyps FHx: kidney cancer Stroke HTN (hypertension) Maternal Grandmother HTN (hypertension) Stroke Surgical History Surgical History (Updated 10/24/23 @ 09:23 by KEN Green) History of esophagogastroduodenoscopy (EGD) History of dental surgery History of liver biopsy Hx of varicose vein ligation Hx of colonoscopy Social History Social History Patient Tobacco Use Status: Never used Tobacco Have you been hit, kicked, punched, or otherwise hurt by someone within the past year? If so, by whom?: No Are you DNR?: No Advance Directives: No Advance Directives Information Provided: Yes Nutrition Risks: No Nutritional Risk Patient : No FDLMP: now Meds Allergies Allergy/AdvReac Type Severity Reaction Status Date / Time No Known Allergies Allergy Verified 10/24/23 09:23 Home Medications ?Medication ?Instructions ?Recorded ?Confirmed ?Last Taken ?Type ascorbate calcium (vitamin C) 500 1 g PO Q6H 10/24/23 Unknown History mg tablet Exam Airway Mallampati Class: I TM Dist: >3cm Neck ROM: Full Loose/Missing/Broken Teeth: No Heart: ok Lungs: ok Assessment and Plan Assessment Anesthesia Assessment: Anesthesia Plan Discussed Final Anesthetic Review NPO: Yes ASA Class: II Final Preanesthetic Review: No Changes in Pt Med Stat, Meds/Allgs Chart Reviewed, Consent Obtained/Reviewed and Anes Risks/Benef Reviewed Patient Risk: Low Procedure Risk: Low Anesthetic Plan Anesthetic Plan: MAC: and Agree w/ Assess. and Plan Disposition: Standard PACU
[2024-07-01 08:05] VITALS: BP 111/74; PULSE 65; RESP 20; TEMP 36.9; O2SAT 98
[2024-07-01 08:11] LABS: UPreg QC Valid YES; Urine Pregnancy NEGATIVE (NEGATIVE)
[2024-07-01] MEDS: Lactated Ringers 1,000 ML 100 ML IVCONT (08:34)
--- NOTE | 2024-07-01 08:37 | P.HPSUR_ITS ---
Pre-Procedural Eval Section A - 24 Hr Update-Section A only Date of Service: 07/01/24 Section B - Complete if H&P > 30 days Chief Complaint: Encounter for screening for malignant neoplasm of Details of Present Illness: mother--colon polyps Relevant Family History (Specify if Yes): Yes Relevant Social History: None Present Medications: see Short Stay Collaborative assessment Medical History: Significant History ( Pancreatitis Varicose vein of leg) History of Previous Operations: Relevant previous surgery/procedure and date(s) (History of esophagogastroduodenoscopy (EGD) History of dental surgery History of liver biopsy Hx of varicose vein ligation Hx of colonoscopy) Allergies: Allergies Allergy/AdvReac Type Severity Reaction Status Date / Time No Known Allergies Allergy Verified 10/24/23 09:23 Review of Systems Sugical H&P ROS: Negative: Constitution, Cardiovascular, Respiratory, Neurological, Psychiatric, Hem-Onc, Allergic/Immunologic, Gastrointestinal, Genitourinary, Musculoskeletal, Integumentary, Endocrine and Eyes /Ears/Nose/Throat Exam Surgical H&P Exam: Normal: HEENT, Normal: Heart, Normal: Lungs, Normal: Extremities, Normal: Abdomen, Normal: Skin and Normal: Neurological Plan Diagnosis/Plan: Unchanged I have reviewed the history and physical and performed a pertinent physical examination on my patient. No changes have occurred unless specified. Time Spent With Patient Time: Total time managing care of this patient today ____ minutes.
--- NOTE | 2024-07-01 09:09 | HO.OPN-COLON ---
Colonoscopy Operative Note Operative Note Date of Service: 07/01/24 Narrative: Operative Information Procedure Description: Colonoscopy Indication: hx of colon polyps Anesthesia: MAC COLONOSCOPY Instrument: Olympus variable stiffness pediatric scope 190L Colonoscopy Monitoring: Vital signs and clinical assessment, continuous EKG monitoring, Pulse oximetry, Carbon Dioxide monitoring and blood pressure monitoring were done throughout the procedure. Colon withdrawal time was 10 minutes. Procedure: The patient was placed in the left lateral decubitis position and pre-procedure medications were administered. After a digital rectal examination of the ano-rectum, the video colonoscope was inserted into the rectum and advanced through the colon to the cecum/TI. The colonoscope was slowly withdrawn in a retrograde panoramic fashion and the colon mucosa was carefully examined including a retroflexed view of the rectum. Findings and interventions are described below. Procedure Difficulty: easy Findings: Terminal Ileum-normal Cecum:normal Right sided retroflexion- normal Ascending Colon: normal Transverse Colon -normal Descending Colon: normal Sigmoid Colon: normal Rectum: Retroflexion with small internal hemorrhoids seen, grade I Anorectum - normal Intervention: cold forceps Colon preparation: [place] Bowel Preparation Scale Right colon; 1-2 Transverse colon: 2 Left colon; 3 (0 = Unprepared colon segment with mucosa not seen due to solid stool that cannot be cleared. 1 = Portion of mucosa of the colon segment seen, but other areas of the colon segment not well seen due to staining, residual stool and/or opaque liquid. 2 = Minor amount of residual staining, small fragments of stool and/or opaque liquid, but mucosa of colon segment seen well. 3 = Entire mucosa of colon segment seen well with no residual staining, small fragments of stool or opaque liquid) Impression and Post Procedure Diagnosis: internal hemorrhoids Plan: High fiber diet leaflet Avoid straining at stool, epsom salts and sitz bath, anusol supps or cream Repeat Colonoscopy in 5 years due to fair prep on right and FH of colon polyps in mother or earlier if clinically indicated Above findings were reviewed with the patient and relevant handouts were provided if indicated.
[2024-07-01 09:57] VITALS: BP 90/36; PULSE 71; RESP 18; TEMP 36.6; O2SAT 98
[2024-07-01 10:12] VITALS: BP 103/62; PULSE 63; RESP 16; O2SAT 100
[2024-07-01 10:27] VITALS: BP 107/66; PULSE 77; RESP 16; TEMP 36.4; O2SAT 100
== END 2024-07-01 10:15 | disposition home or self-care (01) ==
PROVIDERS: Nurse Practitioner; PCP Physician Assistant Medical; Visit Provider Internal Medicine Gastroenterology
PROC: 0DJD8ZZ Inspection of Lower Intestinal Tract, Via Natural or Artificial Opening Endoscopic (ICD-10-PCS; CPT 45378; principal; 2024-07-01 09:50)
DX: Z12.11 Encounter for screening for malignant neoplasm of colon (principal); Z86.010 Personal history of colon polyps; Z83.719 Family history of colon polyps, unspecified; K64.0 First degree hemorrhoids; K75.81 Nonalcoholic steatohepatitis (NASH); Z98.890 Other specified postprocedural states
CPT/HCPCS: 45378; 81025; J2704

== ENCOUNTER → 2024-07-01 07:32 | Outpatient (BNV) | payer OTHER, SELFPAY | PROVIDERS: PCP Physician Assistant Medical; Visit Provider Internal Medicine Gastroenterology | DX: Z12.11 Encounter for screening for malignant neoplasm of colon (principal); Z86.010 Personal history of colon polyps; K64.8 Other hemorrhoids | CPT/HCPCS: 45378 ==